=== PATIENT | male | born 1955 ===

== ENCOUNTER 2017-06-10 07:35 | Day surgery (SDC) | payer MEDICAID ==
[2017-06-09 06:36] VITALS: BMI 26.3
[2017-06-10] MEDS ORDERED: Propofol 10 mg/ml Inj (20 ML) ONE (08:33)
[2017-06-10] MEDS ORDERED: Sodium Chloride 0.9% 1,000 ML IV SCH (09:15)
[2017-06-10 10:15] VITALS: BP 101/62; PULSE 59; RESP 18; TEMP 97.6; O2SAT 97
== END 2017-06-10 12:06 | disposition home or self-care (01) ==
LOC: ENDO 07:35
PROVIDERS: ATTEND Internal Medicine Gastroenterology
DX: Z12.11 Encounter for screening for malignant neoplasm of colon (principal); D12.2 Benign neoplasm of ascending colon; D12.3 Benign neoplasm of transverse colon; K57.30 Diverticulosis of large intestine without perforation or abscess without bleeding; K64.0 First degree hemorrhoids
CPT/HCPCS: 45380; 45385; 82948; 88305; J2704; J7040 ×2